=== PATIENT | female | born 1950 ===

== ENCOUNTER → 2017-03-31 | Outpatient (REF) | LOC: ZLAB.WCH 10:12 | DX: Z01.89 Encounter for other specified special examinations (principal) ==

== ENCOUNTER 2022-01-18 19:05 | Inpatient (IN) | payer BC, MEDICARE ==
[~2022-01-18] VITALS: Ht 152.4 cm; Wt 68.3 kg
[2022-01-18] MEDS ORDERED: 00186-0370-20 IH (20:38)
[2022-01-18] MEDS ORDERED: PROVENTIL0.09 MG/A1 IH (20:39)
[2022-01-18] MEDS ORDERED: VALIUM 5MG T5 MG/TAB PO (20:41)
[2022-01-18] MEDS ORDERED: HCTZ 25MG TAB25 MG PO (20:42)
[2022-01-18] MEDS ORDERED: TOPROL XL 50MG50 MG PO (20:43)
[2022-01-18] MEDS ORDERED: ZOLOFT 100MG100 MG PO (20:43)
[2022-01-18] MEDS ORDERED: WELLBUTRIN XL300 M1 PO (20:44)
[2022-01-18] MEDS ORDERED: ZOCOR 20MG20 MG PO (20:44)
[2022-01-18] MEDS ORDERED: GLUCOPHAGE500 MG/TAB PO (20:46)
--- NOTE | 2022-01-18 21:19 | NUR ---
ARRIVED TO ROOM AT 2028. ON COUCH AT BEDSIDE AND PT SITTING IN BED. NO SIGNS OF DISTRESS. PT HAVING CONVERSATION WITH AND LAUGHING. RECEIVED BREIF REPORT REGARDING PT THAT SHE WAS ON 5L W/ SATURATIONS IN MID TO HIGH 90S. RN STATED SHE WANTED TO TRY AND WEAN O2 CONSIDERING PTS HISTORY OF COPD. WHEN ASSESSING PT IN ROOM SHE WAS ON 5L WITH SATURATIONS RANGING BETWEEN 96% AND 98%. NOTIFIED PT AND THAT I WOULD BE TITRATING O2 DOWN DUE TO SATURATIONS BEING HIGH. PT WAS UNHAPPY WITH THIS AND STATED "WAS GIVEN FOR DAYS" ASKED PT FOR CLARIFICATION AND SHE STATES SHE NEEDED IT FOR IMPROVEMENT. EDUCATED PT ABOUT SATURATIONS AND EFFECT OF O2 TOXICITY. PATIENT STILL UNHAPPY AND SAID SHE COULD NOT FEEL IT. VERIFIED THAT CANNULA WAS ON AND FUNCTIONING PROPERLY. PT STATES SHE "DIDN'T LIKE IT DOWN SO LOW BUT I GUESS YOU KNOW MORE THAN I DO". REPORTED TO RN PATIENTS COMPLAINTS WITH O2 TITRATION. RN AGREED WITH TITRATION OF O2. WHEN LEAVING ROOM AND WHILE IN ANOTHER ROOM HAD HEARD PATIENT MENTION TO TO TURN UP O2. SAW BY FLOW METER, BUT WHEN I WALKED INTO ROOM TO LET PT KNOW THAT I HAD SPOKEN WITH THE NURSE THE FLOW METER DID NOT SEEM TO BE CHANGED. NOTIFIED AID AND RN ABOUT PT'S DISLIKING OF WEANING O2 AND HER MENTIONING TO ABOUT CHANGING IT.
--- NOTE | 2022-01-18 22:15 | NUR ---
PT ARRIVED TO MEDICAL FROM [facility] ED APPROXIMATELY 2034. THE PATIENT ARRIVED ON 5L NC SATTING 98%. THE PATIENT DID NOT SEEM TO BE IN ANY DISTRESS. CONTACTED PROVIDER TO NOTIFY THE PATIENT HAD ARRIVED AND THAT HER MED REC WAS COMPLETED. THE PATIENT IS ALERT AND ORIENTED, DENIES ANY PAIN AT THIS TIME. THE PATIENT DOES STATE THAT HER IS ON THE WAY FROM [place] WITH HER STUFF, AND THIS RN ENSURED HER THAT HE WOULD BE ABLE TO BRING THE ITEMS UP AND VISIT WITH HER. THE PATIENT VERBALIZED DISCOMFORT WITH HER IV, THIS RN NOTED SOME BLOODY DRAINAGE. INFORMED THE PATIENT THAT I WOULD LIKE TO RESTART HER IV, THE PATIENT WAS AGREEABLE. THE PATIENT'S STAYED UNTIL THIS TIME, AND THEN HEADED HOME. HE STATES HE WILL RETURN TO VISIT IN THE MORNING. ASSESSMENT HAS BEEN COMPLETED, PT IS IN BED AND THE ONLY COMPLAINT SHE HAD IS DUE TO RESPIRATORY THERAPY AND MYSELF SAYING WE NEEDED TO TURN HER O2 DOWN TO KEEP HER CO2 LEVELS FROM RISING. THE PATIENT WAS APREHENSIVE ABOUT THIS, BUT OTHERWISE DID NOT COMPLAIN TOO MUCH.
[2022-01-19] VITALS (7 sets, daily range): BP systolic 98–146; BP diastolic 44–64; PULSE 58–79; TEMP 97.7–98.3
[2022-01-19 04:24] LABS: BASO % 0.2 % (0.0-2.0); EOS % 0.1 % (0.0-4.0); GRAN # 7.8 K/mm3 (1.4-6.5); GRAN % 75.4 % (42.2-75.2); HEMATOCRIT 46.2 % (37.0-47.0); LYMPH # 1.7 K/mm3 (1.2-3.4); LYMPH % 16.2 % (20.0-51.0); MEAN CELL VOLUME 98 fl (80.0-100.0); MEAN CORPUSCULAR HEMOGLOBIN 30 pg (27-31); MEAN CORPUSCULAR HGB CONC 30 g/dl (33.0-37.0); MEAN PLATELET VOLUME 8.8 fl (7.4-10.4); MONO # 0.8 K/mm3 (0.1-0.6); MONO % 7.4 % (1.7-9.3); PLATELET COUNT 213 K/mm3 (130-400); RED BLOOD COUNT 4.74 M/mm3 (4.10-5.30); REDCELL DISTRIBUTION WIDTH-CV 14.6 % (11.5-14.5)
[2022-01-19 04:42] LABS: BILIRUBIN,TOTAL 0.4 mg/dL (0.2-1.2); CALCIUM 8.5 mg/dL (8.4-10.2); CREATININE, serum 0.83 mg/dL (0.57-1.11); POTASSIUM 3.7 mmol/L (3.5-4.5); TOTAL PROTEIN 6.3 gm/dL (6.2-8.1)
[2022-01-19 04:58] LABS: CHOLESTEROL RISK RATIO 4.4
[2022-01-19 05:03] LABS: THYROID STIMULATING HORMONE 2.037 uIU/mL (0.350-4.940)
--- NOTE | 2022-01-19 06:00 | NUR ---
THE PATIENT HAD AN UNEVENTFUL NIGHT. SLEPT VERY WELL. THIS RN DID CHANGE THE PATIENT'S IV, SUCCESSFUL IV START IN THE LEFT FOREARM. PATIENT TOLERATED IV START VERY WELL. IN THE MIDDLE OF THE NIGHT, SILVERER BROUGHT A FAN FOR THE PATIENT WHICH THIS RN BELIEVED WOULD HELP WITH THE NEED FOR AIR PASSING OVER HER FACE INSTEAD OF TITRATING O2 UP. THE PATIENT FELT VERY COMFORTABLE WITH THIS. SHE SLEPT ALL NIGHT WITH ONLY WAKING DUE TO VITAL SIGNS AND LABS. NO OTHER CONCERNS. WILL REPORT TO DAY SHIFT RN.
--- NOTE | 2022-01-19 08:30 | NUR ---
Patient is resting in bed, alert and oriented x 4, VSS, denies SOB at this time. 3L O2 NC. Assessment completed, meds provided. No other needs at this time. Call light within reach.
--- NOTE | 2022-01-19 10:50 | NUR ---
Several visit attempts; Patient sleeping, Cloth Dyeing Range Tender left card offering God's blessings and Spiritual Care.
--- NOTE | 2022-01-19 14:56 | NUR ---
SW met with patient to complete intake and discuss discharge plan. Per patient, she lives at home with her Wily ([phone]). She reports the being fully independent with her ADL's and IADL's and does not utilize any DME to assist with mobility. Patient denies any home oxygen use but does say she has a nebulizer. PCP is and she utilizes [facility] for prescriptions. Patient reports that she does have a [facility] established listing Wily as her agent. Patient is on approx.5.5 L of NC oxygen and PT/OT eval requested. Discharge plan: Home (may need new home o2/possible HH)
--- NOTE | 2022-01-19 19:00 | NUR ---
Patient has been resting in bed, no changes in her oxygen needs. Unable to get sputum collections. Antibiotics adminsitered per orders. Report given to night RN.
--- NOTE | 2022-01-19 20:51 | NUR ---
TX GIVEN VIA MOUTHPIECE, TOLERATED WELL. PT ON 5L NC BEFORE AND AFTER TX.
[2022-01-20 03:22] VITALS: BP 128/49; PULSE 70; TEMP 97.8
[2022-01-20 06:42] LABS: BASO % 0.4 % (0.0-2.0); EOS # 0.1 K/mm3 (0.0-0.7); EOS % 1.1 % (0.0-4.0); GRAN # 7.2 K/mm3 (1.4-6.5); HEMATOCRIT 46.7 % (37.0-47.0); LYMPH # 3.1 K/mm3 (1.2-3.4); MEAN CELL VOLUME 98 fl (80.0-100.0); MEAN CORPUSCULAR HEMOGLOBIN 29 pg (27-31); MEAN CORPUSCULAR HGB CONC 30 g/dl (33.0-37.0); MEAN PLATELET VOLUME 9.3 fl (7.4-10.4); MONO # 0.9 K/mm3 (0.1-0.6); MONO % 8.1 % (1.7-9.3); PLATELET COUNT 200 K/mm3 (130-400); RED BLOOD COUNT 4.79 M/mm3 (4.10-5.30); REDCELL DISTRIBUTION WIDTH-CV 14.9 % (11.5-14.5)
[2022-01-20 07:36] VITALS: BP 127/56; PULSE 84; TEMP 98.1
--- NOTE | 2022-01-20 08:39 | NUR ---
Shift assessment preformed. Scheduled medications given. VSS. Patient A&O. Patient currenlty requiring 4L of O2 via nasal cannula sating 91%. Patient denies any pain, discomfort, SOA, or further needs at this time. Call light in reach. Fall precautions in place.
[2022-01-20 11:47] VITALS: BP 115/52; PULSE 88; TEMP 98.1
--- NOTE | 2022-01-20 12:29 | NUR ---
Director Of National Sales rounds: Patient was waiting news from doctor to see if she gets to go home today.
[2022-01-20 16:00] VITALS: BP 124/45; PULSE 84; TEMP 97.6; TEMP 9736
--- NOTE | 2022-01-20 18:30 | NUR ---
REPORT RCVD FROM PAUL LAL. THE PATIENT IS SITTING UP IN BED AT THIS TIME. DENIES ANY CONCERNS. WILL RETURN FOR ASSESSMENT AND MEDICATIONS.
--- NOTE | 2022-01-20 19:11 | NUR ---
Patient has had an uneventful day. Currently requiring 3.5L of O2 via nasal cannula. VSS. BS of 315 at last check, insulin given per protocol. Patient currently resting in bed, denies any pain, discomfort, SOA, or further needs at this time. Call light in reach. Fall precautions in place.
--- NOTE | 2022-01-20 19:39 | NUR ---
TXS GIVEN VIA MOUTHPIECE, TOLERATED WELL. PT ON 3L NC BEFORE AND AFTER TX.
[2022-01-20 20:01] VITALS: BP 121/88; PULSE 86; TEMP 98
[2022-01-20 23:17] VITALS: BP 150/60; PULSE 83; TEMP 98.1
[2022-01-21 03:58] VITALS: BP 158/60; PULSE 71; TEMP 97.7
[2022-01-21 06:39] LABS: BASO # 0.1 K/mm3 (0.0-0.2); BASO % 0.5 % (0.0-2.0); EOS # 0.2 K/mm3 (0.0-0.7); EOS % 1.8 % (0.0-4.0); GRAN # 6.2 K/mm3 (1.4-6.5); HEMATOCRIT 41.8 % (37.0-47.0); HEMOGLOBIN 13.3 g/dl (12.5-16.0); LYMPH # 3.2 K/mm3 (1.2-3.4); LYMPH % 30.8 % (20.0-51.0); MEAN CORPUSCULAR HEMOGLOBIN 30 pg (27-31); MEAN CORPUSCULAR HGB CONC 32 g/dl (33.0-37.0); MEAN PLATELET VOLUME 9.1 fl (7.4-10.4); MONO # 0.8 K/mm3 (0.1-0.6); MONO % 7.6 % (1.7-9.3); PLATELET COUNT 200 K/mm3 (130-400); REDCELL DISTRIBUTION WIDTH-CV 14.5 % (11.5-14.5)
[2022-01-21 06:47] LABS: MEAN CELL VOLUME 93 fl (80.0-100.0)
[2022-01-21 08:00] VITALS: BP 143/66; PULSE 94; TEMP 97.4
--- NOTE | 2022-01-21 08:00 | NUR ---
Scheduled medications given. Shift assessment preformed. Patient currently requiring 3L of O2 via nasal cannula. Denies any pain, discomfort, SOA, or futher needs at this time. Call light in reach. Fall precautions in place.
[2022-01-21 12:00] VITALS: BP 133/76; PULSE 73; TEMP 98
--- NOTE | 2022-01-21 12:00 | NUR ---
Pt awake and watching TV. Shift assessment completed. HR RRR. Lungs diminished upon auscultation; O2 sat at 90% on 3L per NC. INT in L forearm intact with slight redness noted; PAUL Rapp aware. SCDs refused. No further requests at this time. Call light within reach.
--- NOTE | 2022-01-21 14:25 | NUR ---
SW was informed that patient would be potentialy DCing tomorrow 01/22/2022. FARZAD will continue to follow.
[2022-01-21 16:51] VITALS: BP 134/47; PULSE 83; TEMP 97.7
[2022-01-21 20:43] VITALS: BP 155/62; PULSE 86; TEMP 97.5
[2022-01-22] VITALS (8 sets, daily range): BP systolic 102–174; BP diastolic 53–92; PULSE 66–88; TEMP 97.6–98.4
--- NOTE | 2022-01-22 05:00 | NUR ---
ASSESSMENT COMPLETE FOR [employer]. PT SITTING UP IN BED WATCHING TV. PT DENIED PAIN, PALPITATIONS, N,V,D OR DIZZINESS. PT'S O2 SATS WERE FOUND TO BE AND REMAINED IN THE LOW 80'S. RT CALLED. PT BUMPED UP TO 4L UNTIL SHE WENT TO SLEEP AND WAS ABLE TO BE BROUGHT BACK DOWN TO 3L OF O2. PT EXPRESSED NO ADDITIONAL NEEDS AT THIS TIME. CALL LIGHT WITHIN REACH.
[2022-01-22 06:50] LABS: BASO % 0.2 % (0.0-2.0); EOS # 0.1 K/mm3 (0.0-0.7); EOS % 1.4 % (0.0-4.0); GRAN # 6.2 K/mm3 (1.4-6.5); GRAN % 64.1 % (42.2-75.2); HEMATOCRIT 46.2 % (37.0-47.0); HEMOGLOBIN 14.3 g/dl (12.5-16.0); LYMPH # 2.6 K/mm3 (1.2-3.4); LYMPH % 27.1 % (20.0-51.0); MEAN CELL VOLUME 95 fl (80.0-100.0); MEAN CORPUSCULAR HEMOGLOBIN 29 pg (27-31); MEAN CORPUSCULAR HGB CONC 31 g/dl (33.0-37.0); MEAN PLATELET VOLUME 9.1 fl (7.4-10.4); MONO # 0.7 K/mm3 (0.1-0.6); MONO % 6.8 % (1.7-9.3); PLATELET COUNT 222 K/mm3 (130-400); RED BLOOD COUNT 4.86 M/mm3 (4.10-5.30); REDCELL DISTRIBUTION WIDTH-CV 14.2 % (11.5-14.5)
[2022-01-22 07:07] LABS: CALCIUM 9.1 mg/dL (8.4-10.2); CREATININE, serum 0.64 mg/dL (0.57-1.11); POTASSIUM 3.7 mmol/L (3.5-4.5)
--- NOTE | 2022-01-22 08:00 | NUR ---
Pt sitting up in bed. Morning medications administered per eMAR. Shift assessment completed. HR RRR. Lungs diminished upon auscultation; O2 sat at 95% on 3L per NC. Pt denies having any SOB. INT on L forearm intact; redness noted. No further requests at this time. Call light within reach.
--- NOTE | 2022-01-22 15:10 | NUR ---
Per Hospitalist, patient not ready for discharge today as oxygen needs are too great. SW met with patient and to follow up on discharge plan. SW discussed DME options with patient who selected [facility] as she previously had [facility] and was not happy with them. SW discussed Home Health services and patient did not feel she needed them at this time.
--- NOTE | 2022-01-22 19:13 | NUR ---
PT IN BEDROOM AT THIS TIME. RESTING IN BED ON PHONE AND WATCHING TV DURING TREATMENTS. NO COMPLAINTS VOICED AT THIS TIME. RAILS UP X3. HOB ELEVATED. CALL LIGHT WITHIN REACH.
[2022-01-23 03:46] VITALS: BP 170/73; PULSE 64; TEMP 97.4
[2022-01-23 06:18] LABS: BASO # 0.1 K/mm3 (0.0-0.2); BASO % 0.5 % (0.0-2.0); EOS # 0.2 K/mm3 (0.0-0.7); GRAN % 58.4 % (42.2-75.2); HEMATOCRIT 46.2 % (37.0-47.0); HEMOGLOBIN 14.3 g/dl (12.5-16.0); LYMPH # 3.4 K/mm3 (1.2-3.4); LYMPH % 32.5 % (20.0-51.0); MEAN CELL VOLUME 94 fl (80.0-100.0); MEAN CORPUSCULAR HEMOGLOBIN 29 pg (27-31); MEAN CORPUSCULAR HGB CONC 31 g/dl (33.0-37.0); MEAN PLATELET VOLUME 9.1 fl (7.4-10.4); MONO # 0.7 K/mm3 (0.1-0.6); MONO % 6.3 % (1.7-9.3); PLATELET COUNT 215 K/mm3 (130-400); REDCELL DISTRIBUTION WIDTH-CV 13.9 % (11.5-14.5)
[2022-01-23 06:40] LABS: CALCIUM 9.2 mg/dL (8.4-10.2); CREATININE, serum 0.6 mg/dL (0.57-1.11); POTASSIUM 3.8 mmol/L (3.5-4.5)
[2022-01-23 07:48] VITALS: BP 165/69; PULSE 69; TEMP 98.1
--- NOTE | 2022-01-23 08:00 | NUR ---
Pt sitting up in bed and eating breakfast. Morning medications administered per eMAR. Shift assessment completed. BP per report was 170/73. BP was 165/69 upon reassessment this am; no intervention required at this time. Lungs diminished upon auscultation with O2 sat at 92% on 4L per NC. Pt denies having any SOB at this time. INT in L forearm intact; redness noted. SCDs refused; on Lovenox. No further requests at this time. Call light within reach.
[2022-01-23] MEDS ORDERED: OXYGEN NASAL.CANN (08:48)
[2022-01-23] MEDS ORDERED: INCRUSE EL62.5 MCG/A IH (08:50)
[2022-01-23] MEDS ORDERED: PREDNISONE10 MG PO (08:54)
[2022-01-23] MEDS ORDERED: DOXYCYCLINE 10100 MG PO (08:56)
[2022-01-23] MEDS ORDERED: PRINIVIL5 MG PO (08:57)
--- NOTE | 2022-01-23 11:12 | NUR ---
Pt discharge instructions given by this ORGANISATIONAL PSYCHOLOGIST. All questions answered. INT on L forearm discontinued; catheter tip intact. Pt remains on O2 4L per NC. Pt currently waiting for husbands arrival. Call light within reach.
--- NOTE | 2022-01-23 11:20 | NUR ---
Pt escorted out of facility by JOSE Licona via wheelchair.
--- NOTE | 2022-01-23 13:39 | NUR ---
Lipstick Molder contacted [facility] and faxed referral with orders for home oxygen. Gerardo at [facility] prepared order and patient's , Wily advised he will last picker supplies before picking up patient. SW again offered home health services, however patient does not feel she needs it. Discharge Plan: Home with home oxygen
== END 2022-01-23 11:15 | disposition home or self-care (01) | DRG 291 ==
LOC: MEDICAL 19:05
PROVIDERS: Physician Assistant; Student in an Organized Health Care Education/Training Program; ADMIT Internal Medicine
DX: I11.0 Hypertensive heart disease with heart failure (principal); I50.33 Acute on chronic diastolic (congestive) heart failure; J18.9 Pneumonia, unspecified organism; J96.01 Acute respiratory failure with hypoxia; J91.8 Pleural effusion in other conditions classified elsewhere; E87.3 Alkalosis; E78.5 Hyperlipidemia, unspecified; F32.A Depression, unspecified; F41.9 Anxiety disorder, unspecified; G47.00 Insomnia, unspecified; D72.829 Elevated white blood cell count, unspecified; J43.9 Emphysema, unspecified; R59.1 Generalized enlarged lymph nodes; E11.65 Type 2 diabetes mellitus with hyperglycemia; Z53.29 Procedure and treatment not carried out because of patient's decision for other reasons; N28.1 Cyst of kidney, acquired; Z79.84 Long term (current) use of oral hypoglycemic drugs; Z87.891 Personal history of nicotine dependence; Z88.0 Allergy status to penicillin
CPT/HCPCS: J0696; J1650; J1815; J1940; J7512